=== PATIENT | male | born 1990 | race African-American/Black ===

== ENCOUNTER 2018-10-22 05:20 | Emergency (ER) | payer OTHER ==
[~2018-10-22] VITALS: Ht 170.2 cm; Wt 90.7 kg
--- NOTE | 2018-10-22 05:20 | NUR ---
BIB EMS. PT PRESENTS TO ED WITH ABD AFTER INGESTING SNICKERS CANDY BAR WRAPER X3 DAYS AGO. HE STATES HAVING DAILY BOWEL MOVEMENTS BUT FEELS CONSTIPATED. PT WAS ATTEMPTING TO PULL WRAPER OUT OF RECTUM ACCORDING [facility]. PT STATES INGESTING PLASTIC WRAPPER AND FEELS CONSTIPATED. VSS UPON ED ARRIVAL. POSITIONED IN BED FOR COMFORT. PROVIDED PT WITH PERSONAL WIPES AND A CHANGE OF CLOTHES. ER MD AWARE. CONTINUE TO MONITOR.
--- NOTE | 2018-10-22 05:20 | NUR ---
KATH CARDOZO. TAKEN TO BED 1
[2018-10-22 05:34] VITALS: BP 142/76
--- NOTE | 2018-10-22 06:03 | NUR ---
PT RETURNED TO ER BED 1 AFTER CLEANING SELF IN ER BATHROOM FOR ABOUT 45 MIN. RN AT BEDSIDE TO BRINA PATIENT
--- NOTE | 2018-10-22 07:02 | NUR ---
Patient being evaluated by DR. MAHMOOD at bedside.
[2018-10-22 10:10] VITALS: BP 140/73
--- NOTE | 2018-10-22 10:10 | NUR ---
Patient discharged with v/s stable. Written and verbal after care instructions given and explained. Patient verbalized understanding. Ambulatory with steady gait. All questions addressed prior to discharge. Advised to follow up with PMD.
--- NOTE | 2018-10-22 10:12 | NUR ---
PT GIVEN HOMELESS FOOD PACKET, CLOTHING AND BUS VOUCHER
--- NOTE | 2018-10-22 10:12 | NUR ---
PT GIVEN HOMELESS PACKET, DRESS APPROPRIATELY, AND D/C TO DEGSIGNATED DESTINATION.
== END 2018-10-22 10:12 | disposition home or self-care (01) ==
LOC: MED 05:20
DX: T18.9XXA Foreign body of alimentary tract, part unspecified, initial encounter (principal); Z71.1 Person with feared health complaint in whom no diagnosis is made; X58.XXXA Exposure to other specified factors, initial encounter
CPT/HCPCS: 74018; 99283; Q0092